=== PATIENT | female | born 1975 | race Hispanic/Latino ===

== ENCOUNTER 2021-05-26 17:10 | Emergency (ER) | payer SELFPAY ==
[~2021-05-26 17:10] MED LIST: FENTANYL CITR 100 MCG/2 ML ONE; ONDANSETRON 4 MG/2 ML VIAL ONE
[2021-05-26] MEDS ORDERED: HYDROMORPHONE HCL 1 MG/ML INJ ONE (17:49)
--- NOTE | 2021-05-26 18:07 | EDPHYS ---
Physician Documentation [facility] Name: Roopa Deleon Age: 45 yrs Sex: Female : 1975 Arrival Date: 05/26/2021 Time: 17:12 Bed 6 Private MD: ED Physician Rich Oakes HPI: 05/26 18:00 This 45 yrs old Female presents to ER via EMS with complaints of Fall Injury. sp3 18:00 45-year-old female with no significant past medical history presents with left lower sp3 extremity pain [place] is [place] in via EMS. Patient has an isolated injury to the left lower extremity and she can move her feet and toes distally. Patient has no other injuries at this time. On ROS patient denies headache, neck pain, chest pain, shortness breath, abdominal pain, other extremity pain, LOC, any other symptoms. Patient's last intake was about 90 minutes ago which was food and 1 alcoholic beer.. Historical: - Allergies: 17:23 No Known Allergies; bp - Home Meds: 17:23 None [Active]; bp - PMHx: 17:23 None; bp - Immunization history: Last tetanus immunization: > 10 years ago. - Social history:: Smoking status: Patient denies any tobacco usage or history of. ROS: 18:01 Constitutional: Negative for fever, chills, and weight loss, Eyes: Negative for injury, sp3 pain, redness, and discharge, Neck: Negative for injury, pain, and swelling, Cardiovascular: Negative for chest pain, palpitations, and edema, Respiratory: Negative for shortness of breath, cough, wheezing, and pleuritic chest pain, Abdomen/GI: Negative for abdominal pain, nausea, vomiting, diarrhea, and constipation, Neuro: Negative for headache, weakness, numbness, tingling, and seizure, Psych: Negative for depression, anxiety, suicide ideation, homicidal ideation, and hallucinations. 18:01 All other systems are negative. Exam: 18:01 Constitutional: This is a well developed, well nourished patient who is awake, alert, sp3 and in no acute distress. Head/Face: Normocephalic, atraumatic. ENT: Nares patent. No nasal discharge, no septal abnormalities noted. External auditory canals are clear. Oropharynx with no redness, swelling, or masses, exudates, or evidence of obstruction, uvula midline. Mucous membranes moist. Neck: Trachea midline, no thyromegaly or masses palpated, and no cervical lymphadenopathy. Supple, full range of motion without nuchal rigidity, or vertebral point tenderness. No Meningismus. Chest/axilla: Normal chest wall appearance and motion. Nontender with no deformity. No lesions are appreciated. Cardiovascular: Regular rate and rhythm with a normal S1 and S2. No gallops, murmurs, or rubs. Normal PMI, no JVD. No pulse deficits. Respiratory: Lungs have equal breath sounds bilaterally, clear to auscultation and percussion. No rales, rhonchi or wheezes noted. No increased work of breathing, no retractions or nasal flaring. Abdomen/GI: Soft, non-tender, with normal bowel sounds. No distension or tympany. No guarding or rebound. No evidence of tenderness throughout. Skin: Warm, dry with normal turgor. Normal color with no rashes, no lesions, and no evidence of cellulitis. Neuro: Awake and alert, GCS 15, oriented to person, place, time, and situation. Cranial nerves II-XII grossly intact. Motor strength 5/5 in all extremities. Sensory grossly intact. Cerebellar exam normal. Normal gait. Psych: Awake, alert, with orientation to person, place and time. Behavior, mood, and affect are within normal limits. 18:01 Musculoskeletal/extremity: Patient has obvious deformity mid tibia with mild tenting of the skin and ecchymoses. Distal neurovascular exam including dorsalis pedis pulse, capillary refill and motor sensory exam are normal.. Vital Signs: 17:18 Weight 65.77 kg; Height 5 ft. 3 in. (160.02 cm); bp 17:25 BP 119 / 59; Pulse 77; Resp 20; Temp 99.0(TE); Pulse Ox 97% on R/A; Pain 3/10; em1 18:00 BP 113 / 66; Pulse 78; Resp 17; Pulse Ox 98% ; bp 18:36 BP 117 / 62; Pulse 77; Resp 17; Temp 98; Pulse Ox 98% ; bp 17:18 Body Mass Index 25.69 (65.77 kg, 160.02 cm) bp [place] Coma Score: 17:18 Eye Response: spontaneous(4). Verbal Response: oriented(5). Motor Response: obeys bp commands(6). Total: 15. Trauma Score (Adult): 17:18 Eye Response: spontaneous(1); Verbal Response: oriented(1); Motor Response: obeys bp commands(2); Systolic BP: > 89 mm Hg(4); Respiratory Rate: 10 to 29 per min(4); [place] Score: 15; Trauma Score: 12 MDM: 17:19 Patient medically screened. sp3 18:03 Data reviewed: vital signs, nurses notes. ED course: 45-year-old female with spiral sp3 fracture of the tibia midshaft and proximal fibula fracture. Images have been sent to orthopedics on-call Dr. Baker who recommended bulky dressing, pain control, and follow-up in his office. Patient is from [place] and so has the option to return here to see Dr. Baker or find a local orthopedist closer to her home. I have given her all the information for her to return if needed. Will discharge patient on diclofenac and tramadol. Patient understands need for follow-up and states that she will decide in the morning which route to go.. 05/26 17:19 Order name: Tib Fib Left XRAY sp3 05/26 17:28 Order name: Cardiac monitoring; Complete Time: 17:28 sp3 05/26 17:28 Order name: IV Saline Lock; Complete Time: 17:28 sp3 Administered Medications: 17:15 Drug: fentaNYL (PF) 50 mcg Route: IVP; Site: left antecubital; bp 17:27 Follow up: Response: No adverse reaction; Pain is decreased bp 17:15 Drug: Zofran (Ondansetron) 4 mg Route: IVP; Site: left antecubital; bp 17:27 Follow up: Response: No adverse reaction bp 17:53 Drug: Dilaudid (HYDROmorphone) 1 mg Route: IVP; Site: left antecubital; aa5 18:34 Follow up: Response: Pain is decreased bp Disposition Summary: 05/26/21 18:06 Discharge Ordered Location: Home sp3 Condition: Stable sp3 Diagnosis - Displaced spiral fracture of shaft of left tibia sp3 - Nondisplaced fracture of lateral malleolus of left fibula sp3 Followup: sp3 - With: Yoel Baker MD - When: Tomorrow - Reason: Recheck today's complaints, Continuance of care Discharge Instructions: - Discharge Summary Sheet sp3 - Cast or Splint Care, Adult sp3 - Tibial and Fibular Fractures sp3 - Tibial Fracture, Adult sp3 Forms: - Medication Reconciliation Form sp3 - Thank You Letter sp3 - Antibiotic Education sp3 - Prescription Opioid Use sp3 - Work release form bd - Family Work Release bd Prescriptions: - Diclofenac Sodium 75 mg Oral Tablet Sustained Release - take 1 tablet by ORAL route 2 times per day; 30 tablet; Refills: 0, Product sp3 Selection Permitted - Tramadol 50 mg Oral Tablet - take 1 tablet by ORAL route every 8 hours as needed; 12 tablet; Refills: 0, sp3 Product Selection Permitted Signatures: Dispatcher [employer] EDAraseli Ibanez, RN RN aa5 Sung Jones RN RN bp Rich Oakes MD MD sp3 Corrections: (The following items were deleted from the chart) 18:19 17:28 BASIC METABOLIC PANEL+C.LAB.BRZ ordered. EDMS EDMS 18:20 17:28 CBC+H.LAB.BRZ ordered. EDMS EDMS 18:20 17:28 PROTIME (+INR)+COAG.LAB.BRZ ordered. EDMS EDMS 18:20 17:28 TYPE AND SCREEN+BB.LAB.BRZ ordered. EDMS EDMS 18:34 17:28 Labs collected and sent ordered. sp3 bp
--- NOTE | 2021-05-26 18:07 | ER ---
Nurse's Notes [facility] Name: Roopa Deleon Age: 45 yrs Sex: Female : 1975 Arrival Date: 05/26/2021 Time: 17:12 Bed 6 Private MD: Diagnosis: Displaced spiral fracture of shaft of left tibia;Nondisplaced fracture of lateral malleolus of left fibula Presentation: 05/26 17:13 Chief complaint: EMS states: FALL WITH LEFT ANKLE DEFORMITY AT JETTIES. Care prior to bp arrival: IV initiated. 20 GA, in the left antecubital area. Mechanism of Injury: Fall from standing position. Trauma event details: Injury occurred in the [facility], Injury occurred: in a recreational area. Injury occurred: May 26, 2021 Injury occurred at: 16:30. 17:13 Acuity: DORIS 3 bp 17:13 Method Of Arrival: EMS: [facility] bp 17:21 Coronavirus screen: At this time, the client does not indicate any symptoms associated bp with coronavirus-19. Ebola Screen: No symptoms or risks identified at this time. Initial Sepsis Screen: Does the patient meet any 2 criteria? No. Patient's initial sepsis screen is negative. Does the patient have a suspected source of infection? No. Patient's initial sepsis screen is negative. Risk Assessment: Do you want to hurt yourself or someone else? Patient reports no desire to harm self or others. Onset of symptoms was May 26, 2021 at 16:30. Triage Assessment: 17:24 General: SEE TRAUMA NOTE\E\. bp Trauma Activation: Consult Physician: ED Physician; Name: ; Notified At: ; Arrived At: Physician: General Surgeon; Name: ; Notified At: ; Arrived At: Physician: Radiology; Name: ; Notified At: ; Arrived At: Physician: Respiratory; Name: ; Notified At: ; Arrived At: Physician: Lab; Name: ; Notified At: ; Arrived At: Historical: - Allergies: 17:23 No Known Allergies; bp - Home Meds: 17:23 None [Active]; bp - PMHx: 17:23 None; bp - Immunization history: Last tetanus immunization: > 10 years ago. - Social history:: Smoking status: Patient denies any tobacco usage or history of. Screenin:18 Abuse screen: Denies threats or abuse. Denies injuries from another. Tuberculosis bp screening: No symptoms or risk factors identified. Never had TB. Possible symptoms: None Risk factors: contact with infectious person. 18:37 Nutritional screening: No deficits noted. Fall Risk None identified. bp Primary Survey: 17:18 NO uncontrolled hemorrhage observed. A: The patient is alert. Airway: patent. bp Breathing/Chest: Respiratory pattern: regular, Respiratory effort: spontaneous, unlabored. Circulation: Heart tones present. Disability Alert. Exposure/Environment: All clothing and personal items were removed. Forensic evidence collection is not deemed to be indicated at this time. Items placed in patient belonging bag. There is no evidence of uncontrolled external bleeding. Obvious injury(ies) are noted at this time: DEFORMITY TO LLE. 18:37 Reassessment Breathing/Chest Respiratory pattern Regular Respiratory effort Spontaneous bp Unlabored. Secondary Survey: 17:30 HEENT: No deficits noted. Gastrointestinal: No deficits noted. Abdomen is soft, bp non-distended. : No signs and/or symptoms were reported regarding the genitourinary system. Musculoskeletal: No deficits noted. Injury Description: Deformity sustained to left rm. Assessment: 17:13 General: Appears in no apparent distress. uncomfortable, Behavior is cooperative, bp appropriate for age, anxious. Pain: Complains of pain in left rm. Neuro: Level of Consciousness is awake, alert, obeys commands, Oriented to Appropriate for age. EENT: No deficits noted. Cardiovascular: No deficits noted. Respiratory: No deficits noted. GI: No signs and/or symptoms were reported involving the gastrointestinal system. : No signs and/or symptoms were reported regarding the genitourinary system. Derm: No deficits noted. Musculoskeletal: No deficits noted. Injury Description: Deformity sustained to left rm. 18:34 Reassessment: PT D/C HOME VIA W/C WITH FAMILY, DX WITH TIB/FIB FX. bp Vital Signs: 17:18 Weight 65.77 kg; Height 5 ft. 3 in. (160.02 cm); bp 17:25 BP 119 / 59; Pulse 77; Resp 20; Temp 99.0(TE); Pulse Ox 97% on R/A; Pain 3/10; em1 18:00 BP 113 / 66; Pulse 78; Resp 17; Pulse Ox 98% ; bp 18:36 BP 117 / 62; Pulse 77; Resp 17; Temp 98; Pulse Ox 98% ; bp 17:18 Body Mass Index 25.69 (65.77 kg, 160.02 cm) bp [place] Coma Score: 17:18 Eye Response: spontaneous(4). Verbal Response: oriented(5). Motor Response: obeys bp commands(6). Total: 15. Trauma Score (Adult): 17:18 Eye Response: spontaneous(1); Verbal Response: oriented(1); Motor Response: obeys bp commands(2); Systolic BP: > 89 mm Hg(4); Respiratory Rate: 10 to 29 per min(4); [place] Score: 15; Trauma Score: 12 ED Course: 17:12 Patient arrived in ED. aa5 17:13 Sung Jones, RN is Primary Nurse. bp 17:15 Triage completed. bp 17:18 Rich Oakes MD is Attending Physician. sp3 17:18 Patient has correct armband on for positive identification. Bed in low position. Call bp light in reach. Side rails up X2. Adult w/ patient. 17:18 Maintain EMS IV. Dressing intact. Good blood return noted. Site clean \T\ dry. Gauge \T\ bp site: 20 GAUGE LEFT AC. Patient maintains SpO2 saturation greater than 95% on room air. Thermoregulation: warm blanket given to patient. 17:23 Arm band placed on. bp 18:04 Tib Fib Left XRAY In Process Unspecified. EDMS 18:04 Yoel Baker MD is Referral Physician. sp3 18:15 Crutch training done. Orthoglass splint: Posterior short lleg splint applied on left bp leg. stirrup splint applied on left leg. 18:36 No provider procedures requiring assistance completed. IV discontinued, intact, bp bleeding controlled, No redness/swelling at site. Pressure dressing applied. Administered Medications: 17:15 Drug: fentaNYL (PF) 50 mcg Route: IVP; Site: left antecubital; bp 17:27 Follow up: Response: No adverse reaction; Pain is decreased bp 17:15 Drug: Zofran (Ondansetron) 4 mg Route: IVP; Site: left antecubital; bp 17:27 Follow up: Response: No adverse reaction bp 17:53 Drug: Dilaudid (HYDROmorphone) 1 mg Route: IVP; Site: left antecubital; aa5 18:34 Follow up: Response: Pain is decreased bp Intake: 17:18 PO: 0ml; Total: 0ml. bp Output: 17:18 Urine: 0ml; Total: 0ml. bp Outcome: 18:06 Discharge ordered by . sp3 18:36 Discharged to home via wheelchair, with family. bp 18:36 Condition: stable 18:36 Discharge instructions given to patient, family, Instructed on discharge instructions, follow up and referral plans. crutch walking, Demonstrated understanding of instructions, follow-up care, medications, crutch walking, splint care, Prescriptions given X 2. 18:37 Patient's length of stay was not longer than 2 hours. bp 18:38 Patient left the ED. bp Signatures: Dispatcher [employer] EDMS Jean Jeronimo em1 Araseli Boyd, RN RN aa5 Sung Jones, RN RN bp Champ, MD CHRISTOFER Villanueva sp3 Corrections: (The following items were deleted from the chart) 18:36 18:00 BP 195 / 121; Pulse 80bpm; Resp 17bpm; Pulse Ox 98%; bp bp
--- NOTE | 2021-05-26 18:24 | RAD REPORT ---
EXAM DESCRIPTION: RAD - Tib Fib Left - 05/26/2021 6:04 pm CLINICAL HISTORY: SMASH INJURY COMPARISON: No comparisons FINDINGS: Oblique fracture is seen with mild displacement involving the distal shaft of the tibia. O blique fracture involves the proximal fibular neck with mild angulation. No dislocation.
[2021-05-26 19:06] VITALS: O2SAT 98
[2021-05-26 19:07] VITALS: BP 117/62; TEMP 98
== END 2021-05-26 18:38 | disposition home or self-care (01) ==
LOC: ER 17:10
DX: S82.242A Displaced spiral fracture of shaft of left tibia, initial encounter for closed fracture (principal); S82.65XA Nondisplaced fracture of lateral malleolus of left fibula, initial encounter for closed fracture; W01.0XXA Fall on same level from slipping, tripping and stumbling without subsequent striking against object, initial encounter; Y92.832 Beach as the place of occurrence of the external cause
CPT/HCPCS: 96374; 96375; 99284; J1170; J2405; J3010